=== PATIENT | male | born 1965 | race Caucasian/White ===

== ENCOUNTER 2025-04-13 04:39 | Emergency (ER) | payer BC, SELFPAY ==
[2025-04-13 04:45] VITALS: BP 149/101; PULSE 80; RESP 18; TEMP 36.1; O2SAT 97
[2025-04-13 04:48] VITALS: BP 149/101; PULSE 80; RESP 18; TEMP 36.1; O2SAT 96
--- NOTE | 2025-04-13 05:00 | DI.CT_ITS ---
Exam(s) CT ABDOMEN PELVIS W EXAM: CT ABDOMEN PELVIS W CLINICAL HISTORY: RLQ buldge, eval inguinal hernia. TECHNIQUE: Imaging Protocol: Axial computed tomography images with coronal and sagittal reformatted images were created and reviewed CONTRAST MATERIAL: Intravenous: Omnipaque 350 Contrast volume:75 ml Oral: no FINDINGS: ABDOMEN and PELVIS: Lung Bases: No acute findings. Liver: Elongated right lobe. Normal density. No suspicious mass. Gallbladder and biliary tract: No radiodense calculus. No wall thickening or pericholecystic fluid. No biliary dilation. Pancreas: Normal density. No abnormal calcifications or inflammatory process. No evidence of mass. Spleen: Normal. Kidneys: Normal size, contour and axis. No radiodense stones. No obstructive uropathy. Left renal cyst. No suspicious masses seen. Adrenal glands: No masses seen. Vasculature: Abdominal aorta non-dilated. Soft tissues: No evidence of inguinal hernia or other abdominal wall hernia. Bladder: No gross wall thickening. No calculi.No focal mass. Bowel: Evaluation somewhat limited due to lack of intra-abdominal fat and lack of oral contrast. No obstruction. No bowel wall thickening. Appendix not visualized.. Peritoneal cavity: No ascites. No focal collection. No mesenteric inflammatory response. No free air. Bones: Degenerative changes and mild scoliosis. Reproductive organs: The prostate is mildly enlarged. Lymph nodes: No pathologically enlarged lymph nodes. IMPRESSION:: No acute abnormality in the abdomen or pelvis. No evidence of right inguinal hernia or other abdominal wall hernia. The preliminary [facility] report was reviewed. RADIATION DOSE DELIVERED: 213.43mGy.cm Total DLP DATA REPOSITORY: All CT scans at this facility are submitted to the National Radiology Data Registry (NRDR) Dose Index Registry (DIR) with the [employer] (A[employer]). RADIATION OPTIMIZATION: All CT scans at this facility use at least one of these dose optimization techniques: automated exposure control; mA and/or kV adjustment per patient size (includes targeted exams where dose is matched to clinical indication); or iterative reconstruction.
[2025-04-13 05:19] LABS: Abs Immature Grans 0.04 10^3/uL (0.0-0.06); HCT 44.8 % (40.0-50.0); HGB 15.4 g/dL (13.5-17.5); Immature Grans % 0.3 %; MCH 31.3 pg (27.0-33.0); MCHC 34.4 % (32.0-36.0); MCV 91 fL (80-95); MPV 9.6 fL (8.0-11.0); Platelet Count 376 10^3/uL (130-400); RBC 4.92 10^6/uL (4.36-5.78); RDW 13.2 % (11.8-14.1); RDW-SD 44.4 fL; WBC 11.97 10^3/uL (4.4-10.8)
[2025-04-13] MEDS: Omnipaque 350 MG/ML 100 ML BTL IJ (05:27)
[2025-04-13] MEDS: Normal Saline - Diluent 50 ML VIAL IJ (05:28)
[2025-04-13] MEDS: Normal Saline Flush 10 ML SYR IVP (05:28)
--- NOTE | 2025-04-13 05:32 | ED.GENADUL_ITS ---
Discharge Plan Disposition Patient Disposition: Home Condition: Good Discharge Details Clinical Impression: Inguinal hernia, right Primary Care Provider: Kiana Reddy ED Provider: Bijan Cheek Home Meds and New Rx's Prescriptions: No Action acetaminophen [Tylenol] 325 MG tablet 650 mg PO Q4H PRN [id number] Discharge Instructions Instructions: Groin Hernia (DC) Additional Instructions: At this time the inguinal canal does not have any herniated bowel content in it. The slight bulging is likely just a reflection of some mild fluid and pressure gradient between your abdominal cavity and the end of your inguinal canal. There does not appear to be any clear evidence that the mesh has become compromised. Please avoid lifting anything heavier than 5 pounds. Avoid any straining of your groin or behaviors that would significantly increase your intra-abdominal pressure/strain. We have placed a referral with our surgeons that you can have further discussion with in regards to the mild defect that you have in your groin. If you notice any worsening of your symptoms, or any new symptoms such as vomiting, diarrhea, fever, chills, shortness of breath, chest pain, numbness, weakness, or fainting , please return immediately to the emergency department for reevaluation. Please follow up with your primary care provider as soon as possible for reassessment and reevaluation. As always, it was a pleasure participating in your medical care today. Referrals: Kiana Reddy [Primary Care Provider, Medicine] [facility] General Date/Time Provider Initiated Documentation: 04/13/25 04:42 . HPI Narrative: 59-year-old male with a past medical history of PTSD, GERD, bipolar disorder, alcoholism in the past, previous right inguinal hernia repair, presents today for evaluation of right inguinal bulge. Patient states that in the area that had previously been surgically repaired he noticed the bulge about 24 hours ago. It was when he was getting up out of bed. He did not lift anything heavy. He denies any trauma or shearing. He denies any recent bowel movements but has been having regular flatus. He denies any nausea or vomiting. He states that it is a mild throbbing ache, but denies any other significant pain. No other complaints at this time. No other modifying factor. Related Data Home Medications ?Medication ?Instructions ?Recorded ?Confirmed acetaminophen 325 mg tablet 650 mg (2 x 325 mg) PO Q4H PRN PRN 05/09/18 04/13/25 (Tylenol) Previous Rx's ?Medication ?Instructions ?Recorded acetaminophen 325 mg tablet 650 mg (2 x 325 mg) PO Q4H PRN PRN 05/09/18 (Tylenol) Allergies Allergy/AdvReac Type Severity Reaction Status Date / Time No Known Allergies Allergy Unverified 04/13/25 04:49 General Stated Complaint: Abd Prob JASMIN: 3 Exam Narrative Exam Narrative: 1.Const: Well-nourished, Well-developed, appearing stated age 2.Eyes: PERRL, no conjunctival injection, and symmetrical lids. 3.ENT: Atraumatic external nose and ears. Moist MM. Neck: Symmetric, trachea midline, No thyromegaly. 4.CVS: +S1/S2, Peripheral pulses 2+ and equal in all extremities. Brisk capillary refill in all extremities. 5.RESP: Unlabored respiratory effort. Clear to auscultation bilaterally. No wheezes rales or rhonchi 6.GI: Soft, Nontender/Nondistended, No hepatosplenomegaly. No guarding or rebound. Bowel sounds are notably present. Patient demonstrates a very small bulge at the distal aspect of the right inguinal canal just above the pubic symphysis. No scrotal hernia. No scrotal tenderness or testicular tenderness. Bulge is easily reducible, and feels quite evacuates otherwise. No palpable stool. 7.MSK: Normocephalic/Atraumatic, Extremities w/o deformity or ttp No cyanosis or clubbing, Normal movement of all extremities 8.Skin: Warm, Dry. No rashes or lesions. 9.Neuro: instrument sterilizer II-XII grossly intact. Sensation grossly intact, no focal neurologic deficits. 10.Psych: (AAO) x3. Appropriate mood and affect Course Vital Signs Vital signs: Vital Signs Temperature 36.1 C L 04/13/25 04:45 Pulse 80 04/13/25 04:45 Respiratory Rate 18 04/13/25 04:45 Blood Pressure 149/101 H 04/13/25 04:45 Pulse Oximetry 97 04/13/25 04:45 Temperature 36.1 C L 04/13/25 04:48 Temperature Source Tympanic 04/13/25 04:45 Pulse 80 04/13/25 04:48 Respiratory Rate 18 04/13/25 04:48 Blood Pressure 149/101 H 04/13/25 04:48 Pulse Oximetry 96 04/13/25 04:48 Oxygen Delivery Method Room Air 04/13/25 04:48 Pain Level 6 04/13/25 04:45 Lab/Test Results Lab/Test Results: Laboratory Tests Range/Units 04/13/25 05:07 WBC (4.4-10.8) 10^3/uL 11.97 H RBC (4.36-5.78) 10^6/uL 4.92 Hgb (13.5-17.5) g/dL 15.4 Hct (40.0-50.0) % 44.8 MCV (80-95) fL 91 MCH (27.0-33.0) pg 31.3 MCHC (32.0-36.0) % 34.4 RDW (11.8-14.1) % 13.2 Plt Count (130-400) 10^3/uL 376 MPV (8.0-11.0) fL 9.6 Immature Gran % % 0.3 Neutrophils % % 56.7 Lymphocytes % % 29.9 Monocytes % % 8.9 Eosinophils % % 3.4 Basophils % % 0.8 Nucleated RBC % (0.0-0.3) % 0.0 Absolute Neutrophils (1.2-6.7) 10^3/uL 6.79 H Absolute Lymphocytes (1.2-3.4) 10^3/uL 3.58 H Absolute Monocytes (0.1-0.8) 10^3/uL 1.07 H Absolute Eosinophils (0.0-0.7) 10^3/uL 0.41 Absolute Basophils (0.0-0.2) 10^3/uL 0.10 Medical Decision Making 59-year-old male with a past medical history of PTSD, GERD, bipolar disorder, alcoholism in the past, previous right inguinal hernia repair, presents today for evaluation of right inguinal bulge. Patient states that in the area that had previously been surgically repaired he noticed the bulge about 24 hours ago. It was when he was getting up out of bed. He did not lift anything heavy. He denies any trauma or shearing. He denies any recent bowel movements but has been having regular flatus. He denies any nausea or vomiting. He states that it is a mild throbbing ache, but denies any other significant pain. No other complaints at this time. No other modifying factor. Patient demonstrates a very small bulge at the distal aspect of the right inguinal canal just above the pubic symphysis. No scrotal hernia. No scrotal tenderness or testicular tenderness. Bulge is easily reducible, and feels quite evacuates otherwise. No palpable stool. Symptoms appear clinically inconsistent with incarcerated or strangulated hernia. Suspect potential fluid in the inguinal canal, but doubt severe mesh defect. Potential mild straining and loosening of previously tied off inguinal canal, however I doubt presence of bowel. We will get a CT scan to rule out any mesh related pathology or hernia. Will monitor closely and reassess. 7 AM Laboratory workup is returned unremarkable, hemoglobin level stable, no significantly elevated white count, electrolytes renal function and hepatic function normal. CT scan shows no evidence of hernia. Discussed with the patient the importance of outpatient follow-up with surgery to discuss potential options for the mild bulging that he has along the inguinal tract. Discussed red flags for which to return. Recommend avoiding heavy lifting, straining, or significant increases in intra-abdominal strain. I have extensively reviewed the treatment plan and discharge instructions with the patient and their family. I have addressed all patient concerns at this time. The patient and family was made aware of what symptoms to monitor for that would warrant a return to the emergency department. Discussed the plan with the patient and family, they demonstrate verbal understanding and agreement with our assessment and plan at this time. The documentation in this chart was dictated using [employer] dictation software. Please excuse any dictation errors. FINDINGS: Limitations: Paucity of intraperitoneal fat. Liver: 18.6 cm longitudinal dimension of elongated right hepatic lobe. Otherwise unremarkable liver. Gallbladder and biliary ducts: Normal. No calcified stones. No ductal dilation. Pancreas: Normal. No ductal dilation. Spleen: Normal. No splenomegaly. Adrenal glands: Normal. No mass. Kidneys and ureters: Intraparenchymal 2.5 cm left kidney cyst. Otherwise unremarkable kidneys. Stomach and bowel: Evaluation of bowel somewhat limited due to paucity of fat and lack of oral contrast. A somewhat prominent amount of air seen in nondilated small bowel loops. No other gross bowel abnormalities. No bowel obstruction. Appendix: Appendix unable to be delineated. Intraperitoneal space: Unremarkable. No free air. No significant fluid collection. Vasculature: Unremarkable. No abdominal aortic aneurysm. Lymph nodes: Unremarkable. No enlarged lymph nodes. Urinary bladder: Unremarkable as visualized. Reproductive: Unremarkable as visualized. Bones/joints: Unremarkable. No acute fracture. Soft tissues: No hernia. Air-filled small bowel loops are seen near the right inguinal canal, but do not extend into the right inguinal canal. IMPRESSION: 1. No evidence of inguinal hernia. 2. Elongation of the right hepatic lobe may be due to a normal variant Chantel's lobe type configuration. Correlate with LFTs. Thank you for allowing us to participate in the care of your patient. Dictated and Authenticated by: Quiana Blair MD 04/13/2025 6:38 AM Eastern Time ([place] & [place]) [facility] All Active Problems (Updated 04/13/25 @ 07:06 by Bijan Cheek DO) Inguinal hernia, right (Acute) Hematemesis (Acute) Chronic back pain (Chronic) PTSD (post-traumatic stress disorder) (Chronic) GERD (gastroesophageal reflux disease) (Chronic) Bipolar disorder (Chronic) Alcoholism (Chronic) Aspiration pneumonia (Acute) Medical History (Updated 04/13/25 @ 07:06 by Bijan Cheek DO) Left elbow fracture Shoulder pain, right Rectal bleeding Femoral hernia LLQ pain Herpes zoster Ankle sprain H/O microdiscectomy Cervical kyphosis Chronic radicular pain of lower back UTI (urinary tract infection) Social History Smoking/Tobacco Use Status: Current every day Smoking risk assessment performed?: Yes Alcohol Intake: current PAWSS Have you Been Recently Intoxicated or Drunk Within the Last 30 days?: No Have you Ever Experienced Previous Episodes of Alcohol Withdrawal?: No Have you ever Experienced Withdrawal Seizures?: No Have you ever Experienced Delirium Tremens(DT)s?: No Have you ever undergone Alcohol Rehabilitation Treatment (i.e, inpt ot outpatient treatment programs)?: No Have you ever Experienced Blackouts?: No Have you ever Combined Alcohol with other Downers within the last 90 days?: No Have you ever Combined Alcohol with any other Substance of Abuse during the last 90 days?: No Positive Blood Alcohol level on Presentation? [PCS.BAL]: No Evidence of Increased Autonomic Activity (i.e. HR>120, tremor, sweating, agita tion, nausea)?: No Result: 0
[2025-04-13 05:38] LABS: ALT 20 U/L (16-63); AST 21 U/L (15-37); Albumin 3.4 g/dL (3.4-5.0); Alkaline Phosphatase 98 U/L (46-116); Anion Gap 9.3 mmol/L (3-11); BUN 8 mg/dL (7-18); Bilirubin, Total 0.4 mg/dL (0.2-1.0); CO2 25.7 mmol/L (21.0-32.0); Calcium 9.3 mg/dL (8.5-10.1); Chloride 102 mmol/L (98-107); Estimated GFR 101.95 (mL/min/1.73m2); Glucose 95 mg/dL (74-106); Potassium 4.2 mmol/L (3.5-5.1); Sodium 137 mmol/L (136-145); Total Protein 7.3 g/dL (6.4-8.2)
--- NOTE | 2025-04-13 06:38 | DI.[facility]_ITS ---
PROCEDURE INFORMATION: Exam: CT Abdomen And Pelvis With Contrast Exam date and time: 04/13/2025 5:28 AM Age: 59 years old Clinical indication: Abdominal pain; Localized; Right lower quadrant (rlq); Prior surgery; Surgery date: 6+ months; Surgery type: Hernia repair; Rlq buldge, eval inguinal hernia TECHNIQUE: Imaging protocol: Computed tomography of the abdomen and pelvis with contrast. Radiation optimization: All CT scans at this facility use at least one of these dose optimization techniques: automated exposure control; mA and/or kV adjustment per patient size (includes targeted exams where dose is matched to clinical indication); or iterative reconstruction. Contrast material: OMNIPAQUE 350; Contrast volume: 75 ml; Contrast route: INTRAVENOUS (IV); COMPARISON: CT Private^PE (Adult) 05/06/2018 1:40 AM FINDINGS: Limitations: Paucity of intraperitoneal fat. Liver: 18.6 cm longitudinal dimension of elongated right hepatic lobe. Otherwise unremarkable liver. Gallbladder and biliary ducts: Normal. No calcified stones. No ductal dilation. Pancreas: Normal. No ductal dilation. Spleen: Normal. No splenomegaly. Adrenal glands: Normal. No mass. Kidneys and ureters: Intraparenchymal 2.5 cm left kidney cyst. Otherwise unremarkable kidneys. Stomach and bowel: Evaluation of bowel somewhat limited due to paucity of fat and lack of oral contrast. A somewhat prominent amount of air seen in nondilated small bowel loops. No other gross bowel abnormalities. No bowel obstruction. Appendix: Appendix unable to be delineated. Intraperitoneal space: Unremarkable. No free air. No significant fluid collection. Vasculature: Unremarkable. No abdominal aortic aneurysm. Lymph nodes: Unremarkable. No enlarged lymph nodes. Urinary bladder: Unremarkable as visualized. Reproductive: Unremarkable as visualized. Bones/joints: Unremarkable. No acute fracture. Soft tissues: No hernia. Air-filled small bowel loops are seen near the right inguinal canal, but do not extend into the right inguinal canal. IMPRESSION: 1. No evidence of inguinal hernia. 2. Elongation of the right hepatic lobe may be due to a normal variant Chantel's lobe type configuration. Correlate with LFTs. Dictated and Authenticated by: Quiana Blair MD. Orderin Ham Thakkar MD
[2025-04-13 07:10] VITALS: BP 114/61; PULSE 52; RESP 12; O2SAT 95
== END 2025-04-13 07:21 | disposition home or self-care (01) ==
LOC: ER 07:15
PROVIDERS: Emergency Provider Student in an Organized Health Care Education/Training Program; PCP Nurse Practitioner Family
DX: K40.90 Unilateral inguinal hernia, without obstruction or gangrene, not specified as recurrent (principal); F17.200 Nicotine dependence, unspecified, uncomplicated
CPT/HCPCS: 80053; 99285; 74177; 85025; 99284; J3490